=== PATIENT | female | born 1985 | race African-American/Black ===

== ENCOUNTER 2020-11-01 14:10 | Emergency (ER) | payer OTHER ==
[~2020-11-01 14:10] MED LIST: PREDNISONE 20MG20 MG PO; VENTOLIN HFA IN18 GM INH
[2020-11-01 14:55] LABS: BASOPHIL 0.7 % (0-2); EOSINOPHIL 2.5 % (0-5); HCT 39.9 % (37.0-47.0); HGB 13.1 g/dl (12.5-16.0); LYMPHOCYTE 25.3 % (15-48); MCH 30.2 pg (25.0-31.0); MCHC 32.8 g/dL (32.0-36.0); MCV 91.9 fL (78.0-100.0); MONOCYTE 7.6 % (0-12); MPV 11.6 fL (6.0-9.5); NEUTROPHIL 63.7 % (41-80); NRBC 0; PLT 161 K/uL (150-400); RBC 4.34 M/uL (4.20-5.40); RDW 12.8 % (11.5-14.0)
[2020-11-01 15:08] LABS: BILIRUBIN NEGATIVE (NEGATIVE); BLOOD NEGATIVE Ery/uL (NEGATIVE); CLARITY CLEAR (CLEAR); COLOR YELLOW (YELLOW); GLUCOSE (U) NORMAL (NORMAL); LEUKOCYTES NEGATIVE Leu/uL (NEGATIVE); NITRITE NEGATIVE (NEGATIVE); PROTEIN NEGATIVE (NEGATIVE); UROBILINOGEN 0.2 mg/dL (0.2-1.0)
[2020-11-01 15:16] LABS: ALBUMIN 3.6 g/dL (3.4-5.0); BILIRUBIN - TOTAL 1.2 mg/dL (0.2-1.0); BUN/CREAT RATIO (CALC) 10.5 RATIO; CREATININE 0.86 mg/dL (0.51-0.95); GLOBULIN (CALCULATION) 4.2 g/dL; TOTAL PROTEIN 7.8 g/dL (6.4-8.2)
== END 2020-11-01 17:44 | disposition home or self-care (01) ==
LOC: FER 14:10
PROVIDERS: Emergency Medicine
DX: K59.00 Constipation, unspecified (principal); D18.03 Hemangioma of intra-abdominal structures; E10.9 Type 1 diabetes mellitus without complications
CPT/HCPCS: 36415; 80053; 81003; 82150; 83690; 85025; J1885; Q9967

== ENCOUNTER 2021-01-30 19:06 | Emergency (ER) | payer OTHER | END 2021-01-30 22:47 | disposition left against medical advice (07) | LOC: FER 19:06 | DX: N89.8 Other specified noninflammatory disorders of vagina (principal); Z53.8 Procedure and treatment not carried out for other reasons ==

== ENCOUNTER 2021-02-01 18:46 | Emergency (ER) | payer OTHER ==
[2021-02-01 21:05] LABS: BILIRUBIN NEGATIVE (NEGATIVE); BLOOD NEGATIVE Ery/uL (NEGATIVE); CLARITY CLEAR (CLEAR); COLOR YELLOW (YELLOW); GLUCOSE (U) NORMAL (NORMAL); LEUKOCYTES NEGATIVE Leu/uL (NEGATIVE); NITRITE NEGATIVE (NEGATIVE); PROTEIN NEGATIVE (NEGATIVE); SPECIFIC GRAVITY 1.025 (1.001-1.030)
[2021-02-01] MEDS ORDERED: METRONIDAZOLE500 MG PO (21:06)
[2021-02-03 05:11] LABS: HBSAG SCREEN Negative (Negative); HEP A AB, IGM Negative (Negative); HEP B CORE AB, IGM Negative (Negative); HEP C VIRUS AB <0.1 (0.0-0.9)
[2021-02-03 08:11] LABS: HIV SCREEN 4TH GENERATION WRFX Non Reactive (Non Reactive)
[2021-02-03 20:07] LABS: CHLAMYDIA TRACHOMATIS, NAA Negative (Negative); NEISSERIA GONORRHOEAE, NAA Negative (Negative)
== END 2021-02-01 21:21 | disposition home or self-care (01) ==
LOC: FER 18:46
PROVIDERS: Nurse Practitioner Family
DX: Z11.3 Encounter for screening for infections with a predominantly sexual mode of transmission (principal); E10.9 Type 1 diabetes mellitus without complications
CPT/HCPCS: 80074; 81003; 87389; 87491; 87591; 99283; J0696

== ENCOUNTER 2021-03-22 20:14 | Emergency (ER) | payer OTHER ==
[~2021-03-22 20:14] MED LIST changes: +METRONIDAZOLE500 MG PO
[2021-03-22 21:40] LABS: BILIRUBIN NEGATIVE (NEGATIVE); BLOOD 3+ Ery/uL (NEGATIVE); COLOR YELLOW (YELLOW); GLUCOSE (U) NORMAL (NORMAL); LEUKOCYTES NEGATIVE Leu/uL (NEGATIVE); NITRITE NEGATIVE (NEGATIVE); PROTEIN NEGATIVE (NEGATIVE); UROBILINOGEN 0.2 mg/dL (0.2-1.0)
[2021-03-22 21:47] LABS: CLARITY SLIGHTLY HAZY (CLEAR)
[2021-03-22 21:49] LABS: BACTERIA TRACE; MUCOUS TRACE
[2021-03-22] MEDS ORDERED: METRONIDAZOLE500 MG PO (22:03)
[2021-03-25 20:11] LABS: CHLAMYDIA TRACHOMATIS, NAA Negative (Negative); NEISSERIA GONORRHOEAE, NAA Negative (Negative)
== END 2021-03-22 22:20 | disposition home or self-care (01) ==
LOC: FER 20:14
PROVIDERS: Nurse Practitioner Family
DX: N76.0 Acute vaginitis (principal); E10.9 Type 1 diabetes mellitus without complications
CPT/HCPCS: 81001; 87210; 87491; 87591; 99283